=== PATIENT | female | born 1985 | race American Indian/Alaskan Native ===

== ENCOUNTER 2020-09-02 08:00 | Outpatient (CLI) | payer OTHER | END 2020-09-02 08:30 | disposition home or self-care (01) | LOC: PPH VACUNA 08:00 | DX: Z23 Encounter for immunization (principal) ==

== ENCOUNTER 2020-09-22 08:00 | Outpatient (CLI) | payer OTHER | END 2020-09-22 08:30 | disposition home or self-care (01) | LOC: PPH VACUNA 08:00 | DX: Z23 Encounter for immunization (principal) ==

== ENCOUNTER → 2020-11-25 | Outpatient (CLI) | payer OTHER | END | disposition home or self-care (01) | LOC: LAB 12:42 | PROVIDERS: ATTEND Emergency Medicine Pediatric Emergency Medicine | DX: Z03.818 Encounter for observation for suspected exposure to other biological agents ruled out (principal) ==

== ENCOUNTER 2022-04-10 11:29 | Outpatient (CLI) | payer OTHER | END 2022-04-10 13:54 | disposition home or self-care (01) | LOC: LAB 11:29 | PROVIDERS: ATTEND Specialist | DX: Z03.818 Encounter for observation for suspected exposure to other biological agents ruled out (principal) ==

== ENCOUNTER 2022-12-26 11:14 | Outpatient (CLI) | payer OTHER | END 2022-12-26 12:39 | disposition home or self-care (01) | LOC: LAB 11:14 | PROVIDERS: ATTEND Obstetrics & Gynecology | DX: E55.9 Vitamin D deficiency, unspecified (principal); D50.9 Iron deficiency anemia, unspecified; N97.0 Female infertility associated with anovulation; E03.9 Hypothyroidism, unspecified ==

== ENCOUNTER 2023-03-20 12:31 | Outpatient (CLI) | payer OTHER | END 2023-03-20 12:34 | disposition home or self-care (01) | LOC: LAB 12:31 | PROVIDERS: ATTEND Anesthesiology | DX: B19.10 Unspecified viral hepatitis B without hepatic coma (principal); Z20.820 Contact with and (suspected) exposure to varicella ==

== ENCOUNTER 2023-04-13 07:23 | Day surgery (SDC) | payer OTHER ==
[~2023-04-13 07:23] MED LIST: LYRICA50 MG PO
[2023-04-13] MEDS ORDERED: DEXAMETHASONE SODIUM PHOSPHATE 4 MG/ML VIAL ONE (09:19)
[2023-04-13] MEDS ORDERED: IOHEXOL 240 mgI/ML 100ML BOTT IV ONE ×2 (09:23→10:30)
[2023-04-13] MEDS ORDERED: LIDOCAINE HCL 1% 200MG/20ML VIAL IJ ONE ×2 (09:28→10:30)
[2023-04-13] MEDS ORDERED: BUPIVACAINE HCL/PF 0.5% 1ML ONE (09:33)
[2023-04-13] MEDS ORDERED: DEXAMETHASONE SODIUM PHOSPHATE 4 MG/ML VIAL IJ ONE (10:30)
== END 2023-04-13 12:00 | disposition home or self-care (01) ==
LOC: CIR.AMB 07:23
PROVIDERS: ATTEND Anesthesiology Pain Medicine
DX: M51.26 Other intervertebral disc displacement, lumbar region (principal)

== ENCOUNTER 2024-05-02 11:37 | Outpatient (CLI) | payer OTHER | END 2024-05-02 14:33 | disposition home or self-care (01) | LOC: LAB 11:37 | DX: M06.09 Rheumatoid arthritis without rheumatoid factor, multiple sites (principal) ==

== ENCOUNTER 2024-07-07 11:48 | Outpatient (CLI) | payer OTHER ==
[2024-07-09 23:04] LABS: chla t Negative (Negative); neiss Negative (Negative)
== END 2024-07-07 11:49 | disposition home or self-care (01) ==
LOC: LAB 11:48
PROVIDERS: ATTEND Surgery
DX: A64 Unspecified sexually transmitted disease (principal); Z11.3 Encounter for screening for infections with a predominantly sexual mode of transmission

== ENCOUNTER 2024-08-07 09:55 | Outpatient (CLI) | payer OTHER | END 2024-08-07 09:56 | disposition home or self-care (01) | LOC: LAB 09:55 | PROVIDERS: ATTEND Internal Medicine Rheumatology | DX: M06.09 Rheumatoid arthritis without rheumatoid factor, multiple sites (principal) ==

== ENCOUNTER 2025-03-25 13:23 | Outpatient (CLI) | payer OTHER | END 2025-03-25 13:32 | disposition home or self-care (01) | LOC: LAB 13:23 | PROVIDERS: ATTEND Internal Medicine Rheumatology | DX: M06.9 Rheumatoid arthritis, unspecified (principal) ==